=== PATIENT | male | born 1960 | race African-American/Black ===

== ENCOUNTER → 2021-04-09 10:12 | Outpatient (BNV) | payer OTHER, SELFPAY | PROVIDERS: PCP Student in an Organized Health Care Education/Training Program; Visit Provider Internal Medicine | DX: D72.819 Decreased white blood cell count, unspecified (principal); E53.8 Deficiency of other specified B group vitamins | CPT/HCPCS: 99203; 99213 ==

== ENCOUNTER 2023-04-01 09:24 | Outpatient (REF) | payer OTHER, SELFPAY | END 2023-04-01 09:25 | disposition home or self-care (01) | LOC: HO.CHCLDS 09:24 | PROVIDERS: Visit Provider Student in an Organized Health Care Education/Training Program | DX: F21 Schizotypal disorder (principal) | CPT/HCPCS: 36415; 80048 ==

== ENCOUNTER 2023-05-27 09:01 | Outpatient (REF) | payer OTHER, SELFPAY ==
[2023-05-27 14:07] LABS: MANUAL DIFF FLAG NO
[2023-05-27 14:48] LABS: Basophils Percent Auto 0.7 % (0-2); Eosinophils Absolute Auto 0.1 X10*3/uL (0.0-0.4); Eosinophils Percent Auto 1.8 % (0-4); Hematocrit 43.3 % (42.0-52.0); Hemoglobin 14.2 g/dl (14.0-18.0); Imm Gran Abs Auto 0.01 X10*3/uL (0.00-0.03); Imm Gran Pct Auto 0.4 % (0.0-0.4); Lymphocytes Absolute Auto 1.2 X10*3/uL (1.2-4.9); Lymphocytes Percent Auto 40.7 % (20-40); Mean Corpuscular HGB Conc 32.8 g/dl (31.0-36.0); Mean Corpuscular Hemoglobin 32.2 pg (27.0-33.0); Mean Corpuscular Volume 98.2 fL (80.0-98.0); Mean Platelet Volume 8.4 fL (9.4-12.4); Monocytes Absolute Auto 0.3 X10*3/uL (0.1-1.2); Monocytes Percent Auto 10.2 % (2-11); Neutrophils Absolute Auto 1.3 x10*3/uL (2.0-8.3); Neutrophils Percent Auto 46.2 % (45-73); Platelet Count 268 X10*3/uL (160-400); Red Blood Count 4.41 X10*6/uL (4.60-5.80); Red Cell Distribution Width 12.5 % (11.0-16.0); White Blood Count 2.9 X10*3/uL (4.8-10.8)
[2023-05-27 14:57] LABS: Alanine Aminotransferase 15 U/L (0-40); Albumin Level 3.9 g/dL (3.5-5.0); Alkaline Phosphatase 84 U/L (39-117); Anion Gap 10 (12-20); Aspartate Amino Transferase 16 U/L (5-37); Bilirubin Total 0.3 mg/dL (0.0-1.0); Blood Urea Nitrogen 13 mg/dL (9-16); C Reactive Protein < 0.10 mg/dL (< or = 0.50); Calcium 8.7 mg/dL (8.4-10.2); Carbon Dioxide 30 mmol/L (22-29); Chloride 102 mmol/L (96-108); Estimated Glomerular Filt Rate > 60; Glucose Random 82 mg/dL (60-115); Lactate Dehydrogenase 137 U/L (118-273); Sodium 138 mmol/L (135-145); Total Protein 6.7 g/dL (6.5-8.0)
[2023-05-27 15:08] LABS: TSH reflex Free T4 1.52 uIU/mL (0.32-4.0)
[2023-05-28 04:31] LABS: HIV AB/AG Nonreactive (Nonreactive); HIV Num 1 0.05 S/CO (0.00-0.99)
== END 2023-05-27 09:02 | disposition home or self-care (01) ==
LOC: HO.CHCLDS 09:01
PROVIDERS: Visit Provider Family Medicine
DX: Z11.4 Encounter for screening for human immunodeficiency virus [HIV] (principal); R63.4 Abnormal weight loss
CPT/HCPCS: 36415; 80053; 83615; 84443; 85025; 86140; 87389

== ENCOUNTER 2023-07-23 13:38 | Outpatient (REF) | payer OTHER, SELFPAY ==
[2023-07-23 14:34] LABS: Appearance Urine Cloudy; Color Urine Yellow; Glucose Urine UA Negative (Negative); Leukocyte Esterase Urine Negative (Negative); Nitrite Urine Negative (Negative); Specific Gravity - Urine 1.015 (1.005-1.025); Urine Blood Negative (Negative); Urine Ketones Negative (Negative); Urine Protein Negative (Neg-Trace)
[2023-07-23 14:39] LABS: Osmolality Urine 486 mosm/kg (373-1093)
== END 2023-07-23 13:39 | disposition home or self-care (01) ==
LOC: HO.CHCLNP 13:38
PROVIDERS: Visit Provider Internal Medicine
DX: R35.89 Other polyuria (principal)
CPT/HCPCS: 81003; 83935

== ENCOUNTER 2023-10-20 15:11 | Emergency (ER) | payer OTHER, SELFPAY ==
--- NOTE | ~2023-10-20 | CT_ITS ---
EXAMINATION: CT HEAD WITHOUT CONTRAST CLINICAL INFORMATION: Head banging. Altered mental status. COMPARISON: None. TECHNIQUE: Contiguous axial imaging was performed from the skullbase to vertex without intravenous administration of contrast. Limited study with motion artifacts. This CT examination was performed using dose optimization techniques as appropriate, variously including the following: *Automated exposure control *Adjustment of mA and/or kV according to patient size (this includes techniques or standardized protocols for targeted exams where dose is matched to indication/reason for exam; i.e. extremities or head) *Use of iterative reconstruction technique DLP: 800 mGy-cm. FINDINGS: There is no evidence of acute intracranial hemorrhage or territorial infarction. No abnormal mass effect or midline shift is seen. Perla to white matter differentiation is well preserved. No extra-axial fluid collections are identified. There is moderate disproportionate dilatation of the lateral ventricles relative to the sulcal spaces. The medial frontoparietal sulci around the interhemispheric fissure superior to the lateral ventricles are partially effaced with a greater degree of prominence of the sylvian fissures along the cerebral convexities. The fourth ventricle is normal in size. The third ventricle is mildly prominent. There is no abnormal attenuation within the brain parenchyma. The osseous structures and soft tissues are normal. The mastoid air cells are well aerated. Mild sphenoid sinus mucosal thickening noted. The imaged portions of the orbits appear normal. CT/CT head/brain wo IV con IMPRESSION: Limited study with motion artifacts. No acute intracranial hemorrhage or territorial infarction. Moderate disproportionate prominence of the lateral ventricles. Milder third ventricular prominence and normal appearance of the fourth ventricle. The possibility of normal pressure hydrocephalus cannot be ruled out and clinical correlation is recommended.
--- NOTE | 2023-10-20 15:27 | ECG_ITS ---
Test Reason : CHEST PAIN Blood Pressure : / mmHG Vent. Rate : 078 BPM Atrial Rate : 078 BPM P-R Int : 132 ms QRS Dur : 070 ms QT Int : 382 ms P-R-T Axes : 060 049 011 degrees QTc Int : 435 ms Normal sinus rhythm Normal EKG When compared with ECG of 24-JUN-2004 09:37, Nonspecific T wave abnormality no longer evident in Lateral leads Referred By: Liane Bartholomew Electronically Signed By:ISSA BETANCOURT
[2023-10-20] MEDS: LORazepam 2 MG/ML VIAL IM (15:40)
[2023-10-20] MEDS: diphenhydrAMINE HCL 50 MG/ML VIAL IM (15:41)
[2023-10-20] MEDS: Haloperidol Lactate 5 MG/ML VIAL IM (15:41)
[2023-10-20 15:42] VITALS: BP 133/73; PULSE 104; RESP 18; TEMP 37; O2SAT 94; BMI 25.0
--- NOTE | 2023-10-20 16:10 | PC.NURSE ---
patient came in from [facility] combative, in restraints and spit mask. patient yelling swears in grenadian. patient intepretor, security and nursing staff at bedside. patient medicated and restrained per AUG. utilized patient scientist engineer, patient is alert to self and place (unable to say what hospital), patient does not know the date, year or situation. patient keeps repeating that someone is going to come and mess him up patient reassured that he is safe in hospital. patient has sitter 1:1 for safety. paperwork from [facility] with minimal information, states patient had chest pain today and refused ekg. also noted in paperwork patient was head banging today at inpatient facility. paperwork also requests right hand xray, does not state why
[2023-10-20 16:34] VITALS: BP 149/72; PULSE 76; RESP 18; O2SAT 98
[2023-10-20 16:44] LABS: MANUAL DIFF FLAG NO
[2023-10-20 16:46] LABS: Basophils Percent Auto 0.5 % (0-2); Eosinophils Absolute Auto 0.1 X10*3/uL (0.0-0.4); Eosinophils Percent Auto 2.9 % (0-4); Hematocrit 36.9 % (42.0-52.0); Hemoglobin 12.7 g/dl (14.0-18.0); Imm Gran Abs Auto 0.01 X10*3/uL (0.00-0.03); Imm Gran Pct Auto 0.3 % (0.0-0.4); Lymphocytes Absolute Auto 1.4 X10*3/uL (1.2-4.9); Lymphocytes Percent Auto 36.7 % (20-40); Mean Corpuscular HGB Conc 34.4 g/dl (31.0-36.0); Mean Corpuscular Hemoglobin 31.8 pg (27.0-33.0); Mean Corpuscular Volume 92.3 fL (80.0-98.0); Mean Platelet Volume 8.2 fL (9.4-12.4); Monocytes Absolute Auto 0.6 X10*3/uL (0.1-1.2); Neutrophils Absolute Auto 1.7 x10*3/uL (2.0-8.3); Neutrophils Percent Auto 44.6 % (45-73); Platelet Count 213 X10*3/uL (160-400); Red Cell Distribution Width 12.2 % (11.0-16.0); White Blood Count 3.8 X10*3/uL (4.8-10.8)
[2023-10-20 17:13] LABS: Alanine Aminotransferase 25 U/L (0-40); Albumin Level 3.3 g/dL (3.5-5.0); Alkaline Phosphatase 101 U/L (39-117); Anion Gap 11 (12-20); Aspartate Amino Transferase 16 U/L (5-37); Bilirubin Total 0.1 mg/dL (0.0-1.0); Blood Urea Nitrogen 15 mg/dL (9-16); Calcium 8.5 mg/dL (8.4-10.2); Carbon Dioxide 28 mmol/L (22-29); Chloride 99 mmol/L (96-108); Creatinine Clr Calc Pharmacy 97.7; Estimated Glomerular Filt Rate > 60; Ethanol < 10 mg/dL; Glucose Random 84 mg/dL (60-115); Potassium 4.2 mmol/L (3.3-5.1); Sodium 134 mmol/L (135-145)
[2023-10-20 17:58] VITALS: BP 129/67; PULSE 101; RESP 16; O2SAT 99
--- NOTE | 2023-10-20 18:29 | ED_ITS ---
HPI - General Adult General Chief complaint: Behavioral Concerns Stated complaint: [facility] Time Seen by Provider: 10/20/23 15:19 Source: EMS Mode of arrival: EMS History of Present Illness HPI narrative: 63-year-old male arrives via EMS from [facility] stating that he has chest pain, paperwork from the facility states patient has been banging his head and may have an injury to his right hand . Patient was transferred to [facility] from [facility]. Patient is otherwise extremely agitated with yelling and requiring restraints. Related Data Home Medications ?Medication ?Instructions ?Recorded ?Confirmed acetaminophen 650 mg 650 mg PO Q8H 04/09/21 08/24/23 tablet,extended release albuterol sulfate 90 mcg/actuation 90 mcg inhalation DAILY PRN 04/09/21 08/24/23 aerosol inhaler (Ventolin HFA) Wheezing atenolol 25 mg tablet 12.5 mg PO DAILY 04/09/21 08/24/23 benztropine 1 mg tablet 1 mg PO BID 04/09/21 08/24/23 cetirizine 10 mg tablet (Zyrtec) 1 tab PO DAILY 04/09/21 08/24/23 docusate sodium 100 mg capsule 1 cap PO DAILY 04/09/21 08/24/23 (Colace) haloperidol 2 mg tablet 1 tab PO BID 04/09/21 08/24/23 ibuprofen 400 mg tablet 400 mg PO Q4-6H PRN Pain 04/09/21 08/24/23 quetiapine 400 mg tablet (Seroquel) 800 mg PO DAILY 04/09/21 08/24/23 risperidone 4 mg tablet 4 mg PO DAILY 04/09/21 08/24/23 tamsulosin 0.4 mg capsule (Flomax) 1 cap PO DAILY 04/09/21 08/24/23 trazodone 100 mg tablet 1 tab PO BEDTIME 04/09/21 08/24/23 Previous Rx's ?Medication ?Instructions ?Recorded cyanocobalamin (vitamin B-12) 1,000 mcg PO DAILY #90 tabs 09/09/23 1,000 mcg tablet (Vitamin B-12) Allergies Allergy/AdvReac Type Severity Reaction Status Date / Time divalproex sodium Allergy Severe face Verified 10/20/23 15:46 [From Depakote] swelling, throat swelling seafood Allergy Severe Unknown Verified 10/20/23 15:46 Review of Systems 2 Review of Systems: Yes Unobtainable due to mental condition PMFSH Past Medical History Source: nursing notes reviewed Medical History Tachycardia Benign prostate hyperplasia Seasonal allergies HTN (hypertension) Schizophrenia Surgical History No pertinent past surgical history Social History Social History Household Members: Other Housing: House Are you a primary patient care director to a significant other at home: No Do you presently have visiting nurse or other home services: No Alcohol intake: former Patient Tobacco Use Status: Current everyday Tobacco user Tobacco use type: Cigarette Smoked in Last 30 Days: Yes Use of substances other than those prescribed or required for medical reasons: No Advance Directives: No Advance Directives Information Provided: No service: No Current occupational status: unemployed Physical Exam ED Vital Signs: Vital Signs - 24 hr 10/20/23 15:42 10/20/23 16:34 10/20/23 17:58 Temperature 98.6 F Pulse Rate 104 H 76 101 H Respiratory Rate 18 18 16 Blood Pressure 133/73 149/72 H 129/67 Pulse Oximetry 94 98 99 Oxygen Delivery Method Room Air Room Air Room Air 10/20/23 19:31 Temperature Pulse Rate 104 H Respiratory Rate 18 Blood Pressure 112/59 L Pulse Oximetry 98 Oxygen Delivery Method Room Air BMI result Body Mass Index 25.0 VITAL SIGNS: Reviewed. GENERAL: Well developed, well nourished, in moderate-severe distress. HEAD: Normocephalic/atraumatic EYES: PERRLA, EOMI EARS: Ext canals without abnormality NOSE: Nares patent bilateral OROPHARYNX: no oral lesions noted, posterior pharynx clear NECK: Supple, no adenopathy LUNGS: Normal breath sounds. No adventitious sounds or accessory muscle use. SpO2<98> CARDIOVASCULAR: Regular rate and rhythm without noted murmurs, no JVD or lower extremity edema. ABDOMEN: Soft, non-tender, non-distended with bowel sounds. MUSCULOSKELETAL: No tenderness, deformities, or effusions noted on gross inspection. EXTREMITIES: No cyanosis, clubbing or edema. SKIN: Inspection of the skin reveals no rashes NEUROLOGIC: Alert and oriented x 2. Strength and sensation to light touch were grossly intact x 4, cranial nerves 2-12 are grossly intact. Medications Administered Discontinued Medications Generic Name Dose Route Start Last Admin Trade Name Elizabeth PRN Reason Stop Dose Admin Diphenhydramine HCl 50 mg 10/20/23 15:19 10/20/23 15:41 Diphenhydramine Hcl 50 Mg/Ml Vial IM 10/20/23 15:20 50 mg ONCE ONE Administration Haloperidol Lactate 5 mg 10/20/23 15:19 10/20/23 15:41 Haloperidol Lactate 5 Mg/Ml Vial IM 10/20/23 15:20 5 mg ONCE ONE Administration Lorazepam 2 mg 10/20/23 15:19 10/20/23 15:40 Lorazepam 2 Mg/Ml Vial IM 10/20/23 15:20 2 mg STAT STA Administration Medical Decision Making Medical Decision Making [facility] Narrative: 63-year-old male with significant agitation, 1540: Medication restrained in addition to physical status initiated. 1640: Patient re-evaluated and I think restrained can be terminated this time, patient is cooperative. 1615: Re-evaluation patient continues to require restraint. I reviewed all investigations and hematologic indices are grossly stable without leukocytosis or left shift, there is no thrombocytopenia and there is a normocytic anemia. Chemistry indices are grossly stable without DANIEL/electrolyte/liver enzyme derangements. Chemistry indices are negative for DANIEL or electrolyte derangements and high sensitivity troponin is undetectable without acute changes on EKG. Ethanol undetectable. CT scan negative for intracranial hemorrhage or mass effect, although radiology is calling into question moderate disproportion quality noted between the lateral ventricles suggesting a possible normal pressure hydrocephalus the patient has not exhibited any typical symptoms to corroborate this imaging finding. I briefly reviewed paperwork from [facility] which describes patient having been transferred to their facility from [facility] on a 12B and a history of being in the [facility] program and having had his Trileptal and Haldol discontinued and they describe on this documentation that patient has been responding to internal stimuli. At this time, patient is cooperative and otherwise hemodynamically stable for return to the facility to continue his treatment. He is tolerating oral intake without difficulty and ambulates with a steady gait. Differential Diagnosis Differential Diagnoses: The differential diagnosis associated with the presentation includes Please see the discussion above Admission/Observation Consideration of admission/observation: Escalation of care including admission/observation considered Please see the discussion above Lab Data MDM Lab Attestation statement: I reviewed the patient's lab results. Please see the discussion above 10/20/23 16:39 10/20/23 16:39 Labs: Lab Results 10/20/23 Range/Units 16:39 WBC 3.8 L (4.8-10.8) X10*3/uL RBC 4.00 L (4.60-5.80) X10*6/uL Hgb 12.7 L (14.0-18.0) g/dl Hct 36.9 L (42.0-52.0) % MCV 92.3 (80.0-98.0) fL MCH 31.8 (27.0-33.0) pg MCHC 34.4 (31.0-36.0) g/dl RDW 12.2 (11.0-16.0) % Plt Count 213 (160-400) X10*3/uL MPV 8.2 L (9.4-12.4) fL Immature Gran % (Auto) 0.3 (0.0-0.4) % Neut % (Auto) 44.6 L (45-73) % Lymph % (Auto) 36.7 (20-40) % Rains % (Auto) 15.0 H (2-11) % Eos % (Auto) 2.9 (0-4) % Baso % (Auto) 0.5 (0-2) % Lymph # (Auto) 1.4 (1.2-4.9) X10*3/uL Rains # (Auto) 0.6 (0.1-1.2) X10*3/uL Eos # (Auto) 0.1 (0.0-0.4) X10*3/uL Baso # (Auto) 0.0 (0.0-0.2) X10*3/uL Abs Immat Gran (auto) 0.01 (0.00-0.03) X10*3/uL Absolute Neuts (auto) 1.7 L (2.0-8.3) x10*3/uL Absolute Nucleated RBC 0.000 (0.0-0.012) X10*3/uL Nucleated RBC % (auto) 0.0 (0.0-0.2) /100WBC Sodium 134 L (135-145) mmol/L Potassium 4.2 (3.3-5.1) mmol/L Chloride 99 (96-108) mmol/L Carbon Dioxide 28 (22-29) mmol/L Anion Gap 11 L (12-20) BUN 15 (9-16) mg/dL Creatinine 0.69 (0.5-1.4) mg/dL Estim Creat Clear Calc 97.7 Estimated GFR > 60 Random Glucose 84 (60-115) mg/dL Calcium 8.5 (8.4-10.2) mg/dL Total Bilirubin 0.1 (0.0-1.0) mg/dL AST 16 (5-37) U/L ALT 25 (0-40) U/L Alkaline Phosphatase 101 (39-117) U/L Troponin I High Sens < 2.7 (<3.5-35.0) ng/L Total Protein 6.0 L (6.5-8.0) g/dL Albumin 3.3 L (3.5-5.0) g/dL Ethyl Alcohol < 10 mg/dL Independent Interpretation I performed an independent interpretation of an: EKG Interpretation: Normal sinus rhythm, HR-78, no STEMI, AR/QRS/QTC is within normal limits. Radiology Impression Discussion of test interpretation with radiology: I have reviewed the radiologist's reading. Radiologist Impression: Please see the discussion above External Record Review External record reviewed: Outpatient record, Prior outpatient labs and Prior outpatient radiology Chronic Conditions Schizoaffective disorder Critical Care Time Critical Care Time Critical Care Time: Yes Total Critical Care Time: 60 Attestation: I personally attest to this time spent taking care of the patient. Discharge Plan Discharge Clinical Impression: Chest pain, Schizoaffective disorder, Outbursts of explosive behavior Patient Disposition: Home, Self-Care Instructions: Chest Pain (ED), Schizoaffective Disorder (ED) Additional Instructions: Resume home medications. Follow-up with your primary care doctor. Return to the ER for any worsening symptoms. Prescriptions: No Action cetirizine [Zyrtec] 10 mg tablet 1 tab PO DAILY risperidone 4 mg tablet 4 mg PO DAILY atenolol 25 mg Tablet 12.5 mg PO DAILY acetaminophen [Tylenol Arthritis] 650 mg Tablet Extended Release 650 mg PO Q8H tamsulosin [Flomax] 0.4 mg capsule 1 cap PO DAILY trazodone 100 mg tablet 1 tab PO BEDTIME ibuprofen 400 mg tablet 400 mg PO Q4-6H PRN (Reason: Pain) benztropine [Cogentin] 1 mg Tablet 1 mg PO BID docusate sodium [Colace] 100 mg capsule 1 cap PO DAILY albuterol sulfate [Ventolin HFA] 90 mcg/actuation HFA aerosol inhaler 90 mcg inhalation DAILY PRN (Reason: Wheezing) haloperidol 2 mg tablet 1 tab PO BID quetiapine [Seroquel] 400 mg tablet 800 mg PO DAILY cyanocobalamin (vitamin B-12) [Vitamin B-12] 1,000 mcg Tablet 1,000 mcg PO DAILY Qty: 90 3RF Print Language: Korean
--- NOTE | 2023-10-20 19:30 | PC.NURSE ---
Assumed care of pt. Pt restraints removed, pt calm and cooperative at this time, 1;1 at bedside for safety. Received call from ADALBERTO Hillman from [facility] for status, informed of ongoing assessments.
[2023-10-20 19:31] VITALS: BP 112/59; PULSE 104; RESP 18; O2SAT 98
[2023-10-20 19:32] LABS: Troponin-I High Sensitivity < 2.7 ng/L (<3.5-35.0)
--- NOTE | 2023-10-20 19:49 | PC.NURSE ---
Pt refusing CT scan of head.
[2023-10-20 22:06] VITALS: BP 118/58; PULSE 99; RESP 18; TEMP 36.8; O2SAT 99
== END 2023-10-20 22:57 | disposition home or self-care (01) ==
PROVIDERS: Emergency Provider Student in an Organized Health Care Education/Training Program
DX: R07.9 Chest pain, unspecified (principal); F25.9 Schizoaffective disorder, unspecified; F63.81 Intermittent explosive disorder; I10 Essential (primary) hypertension; Z78.1 Physical restraint status
CPT/HCPCS: 36415; 70450; 80053; 80307; 84484; 85025; 93005; 96372; 99284; J1200; J1630; J2060

== ENCOUNTER → 2023-10-20 15:27 | Outpatient (BNV) | payer OTHER, SELFPAY | PROVIDERS: Emergency Provider Student in an Organized Health Care Education/Training Program; Visit Provider Internal Medicine | DX: R07.9 Chest pain, unspecified (principal) | CPT/HCPCS: 93010 ==

== ENCOUNTER 2024-12-09 09:17 | Outpatient (REF) | payer OTHER, SELFPAY ==
--- OUTSIDE RECORDS SUMMARY | 2024-12-09 09:37 | XMS_ITS | Clinical Summary ---
Author Organization [facility] Facility Address [address] [address] Care Team Providers Care [id number] Android Developer Name Role Phone Unavailable Primary Care Provider Unavailabl e Social History Tobacco Use Types Packs/Day Years Used Date Smoking Tobacco: Never Assessed Sex and Gender Information Value Date Recorded Sex Assigned at Not on file Legal Sex Male 2:16 PM EDT Gender Identity Not on file Sexual Orientation Not on file Plan of Treatment Health Maintenance Due Date Last Done Comments Colorectal Cancer Screening: Annual FOBT 2011 Colorectal Cancer Screening: Colonoscopy 2011 Colorectal Cancer Screening: Sigmoidoscopy 2011 Pneumococcal Vaccine: 50+ Ye ars (1 of - PCV) 01/30/2012 Influenza Vaccine (Season Ended) 2025 Hepatitis B Vaccine Aged Out No longe r eligible based on patient's age to complete this topic Insurance [facility] ([id number]) JA [place]UC[place]O [id number] [facility] ([id number]) JA [place] [id number]
[2024-12-09 14:43] LABS: Estimated Average Glucose 114 mg/dL; Hemoglobin A1c % 5.6 % (<6.0)
[2024-12-09 15:03] LABS: Alanine Aminotransferase 17 U/L (0-40); Albumin Level 3.9 g/dL (3.5-5.0); Alkaline Phosphatase 74 U/L (39-117); Anion Gap 10 (12-20); Aspartate Amino Transferase 27 U/L (5-37); Bilirubin Total 0.5 mg/dL (0.0-1.0); Blood Urea Nitrogen 14 mg/dL (9-16); Calcium 8.7 mg/dL (8.4-10.2); Carbon Dioxide 25 mmol/L (22-29); Chloride 102 mmol/L (96-108); Cholesterol 105 mg/dL (<200); Estimated Glomerular Filt Rate > 60; Glucose Fasting 157 mg/dL (60-99); HDL Cholesterol 46 mg/dL (>40); LDL Cholesterol Calculated 53 mg/dL (<100); Potassium 4.4 mmol/L (3.3-5.1); Sodium 133 mmol/L (135-145); Total Protein 6.2 g/dL (6.5-8.0); Triglycerides 31 mg/dL (<150)
[2024-12-10 08:21] LABS: Syphilis Screen Nonreactive (Nonreactive)
[2024-12-12 01:33] LABS: TS Negative Control Passed; TS Panel A 2; TS Panel B 1; TS Positive Control Passed; TSpotTB Negative (Negative)
== END 2024-12-09 09:18 | disposition home or self-care (01) ==
LOC: HO.CHCLDS 09:17
PROVIDERS: Visit Provider Psychiatry & Neurology Child & Adolescent Psychiatry
DX: F20.9 Schizophrenia, unspecified (principal)
CPT/HCPCS: 36415; 80053; 80061; 83036; 86481; 86780